=== PATIENT | male | born 1925 | race Caucasian/White ===

== ENCOUNTER 2016-12-15 11:53 | Inpatient (IN) | payer MEDICARE ==
[~2016-12-15] VITALS: Ht 172.7 cm; Wt 73.5 kg
[2016-12-15] VITALS (7 sets, daily range): BP systolic 142–179; BP diastolic 63–82; PULSE 53–65; RESP 18–20; O2SAT 96–99
[~2016-12-15 11:53] MED LIST: ACET325C PO; ASPI81TA3 PO; ATOR10TA66 PO; CARV12.52 PO; FURO-129 PO; HYDR-4003 PO; LOSA50TA3 PO; NITR0.4T SL; PRE20 PO; TAMS0.4C98 PO
[2016-12-15 12:07] LABS: BASOPHILS % (AUTO) 0.3 % (0-3); EOSINOPHILS % (AUTO) 2.7 % (0-5); Mean Corpuscular Hemoglobin 34.1 pg (27.0-35.0); Mean Corpuscular Volume 98.8 fL (81-100); NEUTROPHILS % (AUTO) 25.3 % (40-74); Platelet Count 103 bil/L (150-400)
--- NOTE | 2016-12-15 12:30 | DRSVH ---
PROCEDURE: X-RAY CHEST ONE VIEW, PORTABLE ([id number]) INDICATIONS: CHEST PAIN TECHNIQUE: One view of the chest was acquired. COMPARISON: [facility], CR, XR CHEST 1VW (PORTABLE), 05/11/2016, 16:32. FINDINGS: Surgical changes and devices: Pacemaker. Lungs and pleura: There is a mild appearance of increased pulmonary vascularity. Mediastinum: Mediastinal contours appear normal. Heart size is normal. Bones and chest wall: No suspicious bony lesions. Overlying soft tissues appear unremarkable. IMPRESSION: Mild increased pulmonary vascularity suggestive of edema. Dictated by: Sally Hatch M.D. on 12/15/2016 at 11:28 Approved by: Sally Hatch M.D. on 12/15/2016 at 11:29
[2016-12-15 12:41] LABS: TROPONIN T 0.014 ug/L (0.0-0.011)
--- NOTE | 2016-12-15 12:42 | DRSVH ---
PROCEDURE: CT BRAIN WITHOUT CONTRAST ([id number]) INDICATIONS: Trauma TECHNIQUE: Noncontrast 4.5 mm thick angled axial sections acquired from the foramen magnum to the vertex, with c oronal reformats. COMPARISON: None. FINDINGS: Image quality: Excellent. CSF spaces: Basal cisterns are patent. No extra-axial fluid collections. The ventricles are symmet flaco in size and shape. Brain: No intracranial bleeds or masses. There is cerebral volume loss for age, with resultant vent ricular and sulcal prominence. There are periventricular and deep white matter chronic small vessel ischemic changes. There is intracranial internal carotid artery atherosclerosis. Skull and face: Calvarium and visualized facial bones appear intact, without suspicious lesions. Sinuses: Visualized sinuses and mastoids are clear. IMPRESSION: 1. No acute intracranial process. 2. Moderate to severe atrophy and chronic microvascular ischemic changes. Dictated by: Sally Hatch M.D. on 12/15/2016 at 11:40 Approved by: Sally Hatch M.D. on 12/15/2016 at 11:41
--- NOTE | 2016-12-15 13:00 | ED.REPORT ---
HPI-General Illness Date of Service Dec 15, 2016 ED Provider: Krzysztof Morales MD The patient is an 89 year old male with history of coronary artery disease s/p stenting and AICD, CHF, hypertension, and GERD, who was brought to the emergency department from [facility] by EMS. While at home last night the patient became dizzy and fell to the ground. He hit his head but did not lose consciousness. He was able to crawl back into his bed and remained there until this morning when he was found by staff. He felt normal yesterday prior to the onset of dizziness and the fall. When staff found him in his room this morning he appeared pale, cool, and diaphoretic. He denies any pain at this time, specifically chest pain or headache. At this time he complains of feeling weak, nauseous, sweaty, and cold. Medics noticed ST elevation in V1-V3 and depression in V4-V6. En route to the ED medics noticed facial droop this is now resolved. He had similar symptoms a few years ago but does not remember what they found. He denies unilateral weakness, numbness, tingling, dysuria, hematuria, diarrhea , vomiting, bloody emesis, cough, runny nose, fever or chills. Code status: DNR, limited intervention Nursing Notes Stated Complaint: R/O STEMI Chief Complaint: General Complaint Nursing Notes Reviewed: Yes Allergies: Coded Allergies: naproxen (Verified Allergy, Severe, Upper Lip Swelling, 12/15/16) Aminoglycosides (Verified Allergy, Mild, 05/11/16) bacitracin (Verified Allergy, Mild, 12/15/16) neomycin (Verified Allergy, Mild, 12/15/16) polymyxin B (Verified Allergy, Mild, 12/15/16) Scheduled Allopurinol (Allopurinol) 100 Mg Tablet 100 MG PO DAILY Aspirin Chew (Aspirin Chew) 81 Mg Chew 81 MG PO DAILY Atorvastatin Calcium (Atorvastatin Calcium) 10 Mg Tablet 10 MG PO HS Carvedilol (Carvedilol) 12.5 Mg Tablet 12.5 MG PO BID Furosemide (Furosemide) 20 Mg Tab 20 MG PO DAILY Losartan Potassium (Losartan Potassium) 50 Mg Tablet 50 MG PO DAILY Tamsulosin (Flomax) 0.4 Mg Capsule 0.4 MG PO HS Scheduled PRN Acetaminophen (Acetaminophen) 325 Mg Capsule 650 MG PO Q4H PRN PRN For Pain Menthol (Absorbine Pain Relieving) 56.7 Gm Gel..gram. 1 APPLIC EXT TID PRN PRN For Pain Nitroglycerin SL (Nitrostat) 0.4 Mg Tab.subl 0.4 MG SL Q5MIN PRN PRN For Chest Pain General Time Seen by MD: 11:56 Chief Complaint Weakness Hx Obtained From: Patient, EMS Arrived By: Ambulance Sudden in Onset?: Yes Onset Occurred: Yesterday Symptom Duration: Since onset Severity: Current: No pain currently Severity: Maximum: No pain Recent Healthcare: No recent doctor visit, No recent hospitalization Similar Sx Previous: No TPA Administration/Criteria Stroke Thrombolytic Therapy : TPA Considered: Yes TPA Administered Intravenously: No, not indicated (NIH stroke scale: 0) NIH Stroke Scale Level of Consciousness: Alert and responsive (0) Ask Month & Age: Both questions right (0) Open/Close Eyes/Hand Store Consultant: Performs both tasks (0) Horizontal EO Movements: None (0) Visual Crystal: No visual loss (0) Facial Palsy: Normal symmetry (0) Right Arm Motor Drift (10s): No drift 10 sec (0) Left Arm Motor Drift (10s): No drift 10 sec (0) Right Leg Motor Drift (5s): No drift 5 sec (0) Left Leg Motor Drift (5s): No drift 5 sec (0) Limb Ataxia FNF/Heel-Arthur: No ataxia (0) Sensation (Arms/Legs/Face): No sensory loss (0) Language Aphasia: No aphasia, normal (0) Dysarthria: No dysarthria, normal (0) Extinction/Inattention: No exctinct/inattent (0) NIHSS Score: 0 Time NIHSS Performed: 12:10 Date NIHSS Performed: Dec 15, 2016 Past Medical History Past Medical History Notes: PCP Dr. 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 current plus VR model HF4885-52E, serial #[id number], Durata lead, model 7120Q/58CM, serial #[id number]) Hip replacement Colonoscopy Cardiac stenting Family History non-contributory Smoking History Former Smoker Social History Alcohol Use: Denies alcohol use Drug Use: Denies drug use Other Social History: [place], Local resident Ambulatory Status Independent Review of Systems +facial droop, resolved Full Review of Systems Constitutional: Reports: Weakness - generalized, Denies: Chills, Fever Ears / Nose / Throat: Denies: Nasal congestion Respiratory: Denies: Non-productive cough, Shortness of breath Cardiovascular: Denies: Chest pain GI: Reports: Nausea, Denies: Diarrhea, Hematemesis, Hematochezia, Vomiting Male: Denies Dysuria, Denies Hematuria Skin: Reports Diaphoresis Neurologic: Reports: Dizziness, Lightheaded, Denies: Focal weakness Complete sys rev & neg: except as marked. Physical Exam Vital Signs Vital Signs Date Time Temp Pulse Resp B/P Pulse Ox O2 Delivery O2 Flow Rate FiO2 12/15/16 14:33 62 20 158/63 96 Nasal Cannula 2 12/15/16 12:07 36.6 53 20 179/82 97 Nasal Cannula 2 Initial VS: Reviewed Head / Eyes: Atraumatic, Normocephalic, PERRL ENT: Mucous membranes moist, Conjunctiva normal, No scleral icterus Neck: Supple, Non-tender, Full range of motion Respiratory: Breath sounds normal, Clear to auscultation, No respiratory distress Cardiovascular: Regular rate & rhythm, Heart sounds normal, Intact distal pulses Abdomen / GI: Soft, Non-tender, No guarding, No rebound, No distention Lymphatic: No lymphadenopathy Extremities: Vascular intact, Neuro intact, No swelling, No tenderness Skin: Warm, Dry, No cyanosis Neurologic: Alert, Oriented, Nonfocal Psychiatric: Mood/affect normal, Behavior normal, Normal thought content General/Constitutional: Awake, Alert Appearance / Presentation: Positive: Pale Globally weak Interpretation & Diagnostics Lab Results Interpretation Result Diagram: 12/15/16 1200 12/15/16 1200 Test 12/15/16 12:00 12/15/16 12:59 12/15/16 14:19 White Blood Count 3.7th/mm3 (3.8-10.1) Red Blood Count 4.14mil/mm3 (4.40-5.80) Hemoglobin 14.1g/dL (13.8-17.2) Hematocrit 40.9% (41.0-50.0) Mean Corpuscular Volume 98.8fL (81-100) Mean Corpuscular Hemoglobin 34.1pg (27.0-35.0) Mean Corpuscular Hemoglobin Concent 34.5% (32.0-37.0) Red Cell Distribution Width 13.0% (12.3-15.4) Platelet Count 103bil/L (150-400) Neutrophils (%) (Auto) 25.3% (40-74) Lymphocytes (%) (Auto) 36.4% (14-46) Monocytes (%) (Auto) 35.0% (4-12) Eosinophils (%) (Auto) 2.7% (0-5) Basophils (%) (Auto) 0.3% (0-3) Hold Blue Top Tube Received (Received) Sodium Level 139mEq/L (134-144) Potassium Level 3.9mEq/L (3.5-5.2) Chloride Level 100mEq/L (97-108) Carbon Dioxide Level 23mmol/L (18-29) Blood Urea Nitrogen 22mg/dL (8-27) Creatinine 1.27mg/dL (0.76-1.27) Estimat Glomerular Filtration Rate 57mL/min (>59) Glucose Level 137mg/dL (60-99) Calcium Level 10.0mg/dL (8.5-10.1) Magnesium Level 2.0mg/dL (1.6-2.6) Total Bilirubin 0.8mg/dL (0.0-1.2) Aspartate Amino Transf (AST/SGOT) 24U/L (0-50) Alanine Aminotransferase (ALT/SGPT) 20U/L (0-44) Alkaline Phosphatase 78U/L (25-160) Troponin T 0.014ug/L (0.0-0.011) Total Protein 7.2g/dL (6.4-8.4) Albumin 4.8g/dL (3.4-5.0) Hold Red Top Tube Received (Received) Prothrombin Time 11.8sec (8.1-12.5) Prothromb Time International Ratio 1.10ratio Activated Partial Thromboplast Time 25.9sec (22.8-33.0) Lactic Acid Level 1.2mmol/L (0.4-2.0) Urine Color Yellow (YELLOW) Urine Appearance Hazy (CLEAR,HAZY) Urine pH 7.5 (5.0-8.0) Urine Specific [place] 1.015 (1.003-1.035) Urine Protein Negativemg/dL (NEG,TRACE) Urine Glucose (UA) Negativemg/dL (NEGATIVE) Urine Ketones Negativemg/dL (NEGATIVE) Urine Occult Blood Negative (NEGATIVE) Urine Nitrite Negative (NEGATIVE) Urine Bilirubin Negative (NEGATIVE) Urine Urobilinogen Normalmg/dL (NORMAL) Urine Leukocyte Esterase Small (NEGATIVE) Urine RBC 0-2/hpf (0-2) Urine WBC 6-10/hpf (0-5) Urine Epithelial Cells Occasional/hpf (NONE-MOD) Urine Crystals None seen (NONE SEEN) Urine Bacteria Few/hpf (NONE-FEW) Urine Hyaline Casts None/lpf (NONE) Urine Granular Casts None seen (NONE SEEN) Urine Waxy Casts None seen (NONE SEEN) Urine Red Blood Cell Casts None seen (NONE SEEN) Urine White Blood Cell Casts None seen (NONE SEEN) Urine Mucus None seen (None Seen) Urine Trichomonas None seen (NONE SEEN) Urine Yeast None (NONE SEEN) Urinalysis Comment None Urine Culture Reflexed Indicated Lab Results Interpretation: CBC mild nonspecific leukopenia, mild nonspecific thrombocytopenia CMP normal Troponin elevated Urine marginally abnormal, nonspecific-culture pending I am not finding indication for treatment and a box at this time ECG Interpretation ECG Interpretation: Sinus rhythm with a rate of 55 LBBB First degree heart block Unchanged from prior EKG taken on 05/11/2016 Time: 11:59 Interpreted by: ED physician X-Ray Chest Interpretation Chest Xray Interpretation: IMPRESSION: Mild increased pulmonary vascularity suggestive of edema. Dictated by: Sally Hatch M.D. on 12/15/2016 at 11:28 Interpretation / Wet Read by: Interpret - Radiologist CT Head Interpretation IMPRESSION: 1. No acute intracranial process. 2. Moderate to severe atrophy and chronic microvascular ischemic changes. Dictated by: Sally Hatch M.D. on 12/15/2016 at 11:40 Study: Head CT no contrast Interpretation / Wet Read by: Interpret - Radiologist Re-Eval/Medical Decision Med Decision/Clinical Course This is an 89-year-old male with an extensive cardiac history and a pacemaker( [employer]) [employer] with sudden onset of diaphoresis and weakness the point he could not stand. He lives by himself. Medics were ultimately called. He denied chest discomfort or shortness of breath. He denies since the fevers chills, denies any infectious symptoms, he appears quite pale and globally weak , but denies any history of GI blood loss. The patient did fall and hit his head, and a head CT was negative. He denies loss of consciousness today. There was initial concern by EMS of the possibility of an ST segment elevation RI, but review the EKG demonstrate a chronic left bundle branch block. She has normal vitals, but appears profoundly and globally weak initially-and mildly resolving diaphoresis. He did improve over time without any major intervention. At this point a search for causes underway, fiona Issa is a chronic Branch block, initial troponin is elevated. Blood work is otherwise normal. Urine is some marginal white cell count, but it is hard to blame on such a presentation, contaminant seems more likely still. The patient while in the hospital admitted to having a syncopal episode yesterday as well. In the setting observation admission is warranted. The patient's limited intervention as does not wish resuscitation or aggressive measures. We give he lives by himself, was too weak to stand when he got here, had a syncopal episode yesterday an extensive cardiac history with elevated troponin today, admission is warranted. Patient received aspirin and Nitropaste. Patient is admitted in stable condition. I have talked with the [employer] sales representative livestock and they will come perform a pacemaker interrogation tomorrow given the syncope reported yesterday. Patient has had no dysrhythmia events in the department. Source of Hx: Old records, EMS Time of Eval: 14:00 Re-Evaluation/Progress Note: Discussed results, diagnosis, and plan for admission. All questions were addressed. Time of Eval: 14:53 Re-Evaluation/Progress Note: Rechecked the patient. He is feeling much better at this time. He reports a syncopal episode yesterday. Will have his pacemaker interrogated. Consultation #1: Referral / Consult Name: Karson Cervantes MD Consulted With: Hospitalist Call Returned at: 14:29 Joinery Patternmaker: Will see patient, Agrees with eval, Agrees with plan, Accepts admit Consultation #2: Call Returned at: 15:02 Note: [employer] rep will be here tomorrow to interrogate the patient's pacemaker. Differential Diagnosis: Negative: Abdominal pain, Allergies, Neutropenia, Pneumonia, Seizure disorder Counseled Regarding: Diagnosis, Lab results, Need for admission Discharge & Departure Primary Impression: Generalized weakness Additional Impressions: LBBB (left bundle branch block) Elevated troponin Syncope and collapse Disposition: ADMITTED TO HOSPITAL Discharge Condition All VS Reviewed: Yes Condition: Stable Referrals: NOPCP (PCP) Scribe Attestation Portions of this note were transcribed by Sheila Thornton. I, Dr. Morales personally performed the history, physical exam and medical decision-making; I reviewed and confirmed the accuracy of the information in the transcribed note. Signed by: Venancio Peraza, 12/15/2016 at 1455. Krzysztof Morales MD Dec 15, 2016 13:00 Sheila Thornton Dec 15, 2016 13:04
[2016-12-15 13:22] LABS: INR 1.1 ratio
[2016-12-15] MEDS ORDERED: Nitroglycerin 2% 1 Gm Ointment TOPICAL SCH (14:05)
[2016-12-15] MEDS ORDERED: ZYL100 PO (14:42)
[2016-12-15] MEDS ORDERED: FUR20 PO (14:44)
[2016-12-15] MEDS ORDERED: LOSA50TA37 PO (14:44)
[2016-12-15] MEDS ORDERED: MENT56.7 EXT (14:45)
--- NOTE | 2016-12-15 14:55 | PCM.HPMED ---
Subjective Date of Service Dec 15, 2016 Primary Provider: Admitting Physician: Karson Cervantes MD Primary Care Physician: Nopcp Attending Physician: Karson Cervantes MD Chief Complaint: Generalized weakness History of Present Illness: The patient is an 89 year old male with history of coronary artery disease s/p scenting and AICD, CHF, hypertension, and GERD, who was brought to the emergency department from [facility] by EMS. While at home last night the patient became dizzy and fell to the ground. He hit his head but did not lose consciousness. He was able to crawl back into his bed and remained there until this morning when he was found by staff. He felt normal yesterday prior to the onset of dizziness and the fall. When staff found him in his room this morning he appeared pale, cool, and diaphoretic. He denies any pain at this time, specifically chest pain or headache. At this time he complains of feeling weak, nauseous, sweaty, and cold. Medics noticed ST elevation in V1-V3 and depression in V4-V6. En route to the ED medics noticed facial droop this is now resolved. He had similar symptoms a few years ago but does not remember what they found. He denies unilateral weakness, numbness, tingling, dysuria, hematuria, diarrhea , vomiting, bloody emesis, cough, runny nose, fever or chills. Most information were retrieved from patient medical record and has per my conversation with the ER physician. Patient is a poor historian , he was reading the news paper during physical and interview and all he wants to talk about is "I want to go home" Review of Systems: Comprehensive review of system x 12 points is negative except for generalized weakness as described above in HPI Allergies Coded Allergies: naproxen (Verified Allergy, Severe, Upper Lip Swelling, 12/15/16) Aminoglycosides (Verified Allergy, Mild, 05/11/16) bacitracin (Verified Allergy, Mild, 12/15/16) neomycin (Verified Allergy, Mild, 12/15/16) polymyxin B (Verified Allergy, Mild, 12/15/16) Home Medications Scheduled Acetaminophen (Acetaminophen) 325 Mg Capsule 325 MG PO Q4-6H Aspirin Chew (Aspirin Chew) 81 Mg Chew 81 MG PO DAILY Atorvastatin Calcium (Atorvastatin Calcium) 10 Mg Tablet 10 MG PO HS Carvedilol (Carvedilol) 12.5 Mg Tablet 12.5 MG PO BID Furosemide (Lasix) 20 Mg Tablet 20 MG PO DAILY Losartan Potassium (Cozaar) 50 Mg Tablet 100 MG PO DAILY Prednisone (PredniSONE) 20 Mg Tablet 20 MG PO DAILY Tamsulosin (Flomax) 0.4 Mg Capsule 0.4 MG PO HS Scheduled PRN Hydrocodone-Acetaminophen 5-325 mg (Hydrocodone-Acetaminophen 5-325 mg) 1 Each Tablet 1 TABLET PO Q8H PRN PRN For Pain Nitroglycerin SL (Nitrostat) 0.4 Mg Tab.subl 0.4 MG SL Q5MIN PRN PRN For Chest Pain PMH 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 CAD Gout Heart attack in 1995 Colon polyps Diverticulosis Peptic ulcer disease Reports: GERD, Hypertension Surgical History TURP, AICD, Hip replacement, Colonoscopy, Cardiac stenting Family History Reviewed and is non contributory to the present illness Social History Hx Alcohol Use: No Hx Substance Use: No Hx Tobacco Use: No Smoking Status: Former Smoker Living Arrangement: Alone Exam Vital Signs Vital Sign - Last Date Time Temp Pulse Resp B/P Pulse Ox O2 Delivery O2 Flow Rate FiO2 12/15/16 14:33 62 20 158/63 96 Nasal Cannula 2 12/15/16 12:07 36.6 Exam General/Constitutional: Morbidly obese male , and stretcher comfortably, no acute distress HEENT: Normocephalic, atraumatic, sclera anicteric Mouth: Moist oropharyngeal mucosa, no oral thrush. Neck: Atraumatic, Supple, no JVD , trachea is midline No swelling, Non-tender, No carotid bruit Heart: S1, S2, Regular rhythm, No murmurs, No rubs, no gallop Chest:Atraumatic, no chest wall deformity, no tenderness Abdomen / GI: Obese , Soft, Non-tender, non distended, no palpable masses. Bowel sounds normal Lymphatic: No lymphadenopathy, no splenomegaly Extremities: No cyanosis, no edema, no calf tenderness Skin: Warm, Dry, No cyanosis, no rash, and also Psychiatric: Mood/affect normal, Behavior normal, Normal thought content Neurologic: Oriented X3, grossly non focal Lab and Diagnostics Result Diagram: 12/15/16 1200 12/15/16 1200 X-Rays, CTs and MRIs Head CT scan reviewed : 1. No acute intracranial process. 2. Moderate to severe atrophy and chronic microvascular ischemic changes. Chest x-ray reviewed and shows : Pulmonary edema Assessment & Plan 1. Generalized weakeners 2. Pulmonary edema 3. 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 Generalized weakeners may be angina equivalent . Troponin borderline . Chest X-ray shows mild pulmonary edema Follow trend of troponin.. EKG shows old left BBB Patient is on aspirin, beta ramona, statin from his medications. Obtain echocardiogram . BNP. Repeat chest X-ray in am No clinical evidence of ongoing infection., No fever, no leukocytes. Home medication reviewed and reconciled . Start IV lasix SCD for DVT prophylaxis . PT evaluation VTE Prophylaxis: SCDs Resuscitation Status: DNR/DNI:Do Not Resuscitate/Intubate Time spent 75 minutes Karson Cervantes MD Dec 15, 2016 14:55
[2016-12-15 15:20] LABS: APPEARANCE,URINE HAZY (CLEAR,HAZY); COLOR,URINE YELLOW (YELLOW); OCCULT BLOOD,URINE NEGATIVE (NEGATIVE); PH,URINE 7.5 (5.0-8.0); UROBILINOGEN,URINE NORMAL (NORMAL)
[2016-12-15 16:49] LABS: TROPONIN T 0.015 ug/L (0.0-0.011)
[2016-12-15 17:00] LABS: Magnesium 1.9 mg/dL (1.6-2.6)
[2016-12-15] MEDS: Furosemide 10 mg/mL 4 mL Inj IVPUSH SCH (17:52)
--- NOTE | 2016-12-15 17:58 | DRSVH ---
[facility] [address] [place] [address] Echocardiogram Report Name: KALINA LEON Frederick e: 12/15/2016 Height: 69 in Hospital Exam Location: [facility] Weight: 155 lb Gender: Male BSA: 1.9 m2 : 1925 Age: 89 yrs BP: 142/63 mmHg Reason For Study: HEART FAILURE Ordering Physician: HOSPITALIST [facility] Performed By: Jamie Roy Referring Physician: ARA AGUAYO Interpretation Summary The left ventricle is mildly dilated. Left ventricular systolic function is moderate to severely reduced. The ejection fraction is estimated to be 30- 35%. Compared to the prior exam, left ventricular function is slightly improved. There is akinesis of the basal 2/3 of the inferior and inferolateral man with severe global hypokinesis of the rest of the ventricle as well as marked dyssynchronous contraction due to RV apical pacing. Compared to the prior exam, the left ventricular wall motion has not changed. The right ventricle is normal in size and function. There is a pacemaker lead in the right ventricle. Right ventricular systolic pressure is estimated to be 34 mmHg plus the clinically estimated CVP which cannot be estimated on this exam. The left atrium is severely dilated. The right atrium is mildly dilated. There is moderate mitral regurgitation. There is mild aortic regurgitation. There is no other significant valvular heart disease. The aortic root is normal size. Procedure: A two-dimensional transthoracic echocardiogram with color flow and Doppler was performed. Apical images are good; parasternal images are difficult. Comparison is made with the echocardiogram of 03/20/16. The heart rate ranged between 55-70 bpm during the study. The patient has a paced rhythm. Left Ventricle: The left ventricle is mildly dilated. Left ventricular wall thickness is mildly increased. Left ventricular systolic function is moderate to severely reduced. The ejection fraction is estimated to be 30-35%. Compared to the prior exam, left ventricular function is slightly improved. There is akinesis of the basal 2/3 of the inferior and inferolateral man with severe global hypokinesis of the rest of the ventricle as well as marked dyssynchronous contraction due to RV apical pacing. Compared to the prior exam, the left ventricular wall motion has not changed. Diastolic function could not be accurately assessed due to paced rhythm. Right Ventricle: The right ventricle is normal in size and function. There is a pacemaker lead in the right ventricle. Atria: The left atrium is severely dilated. The right atrium is mildly dilated. The interatrial septum is intact with no evidence for an atrial septal defect. Mitral Valve: The mitral valve leaflets appear borderline thickened, but open well. There is moderate mitral regurgitation. Aortic Valve: The aortic valve is grossly normal. There is no hemodynamically significant valvular aortic stenosis. There is mild aortic regurgitation. Tricuspid Valve: The tricuspid valve is not well visualized, but is grossly normal. There is mild tricuspid regurgitation. Right ventricular systolic pressure is estimated to be 34 mmHg plus the clinically estimated CVP which cannot be estimated on this exam. Pulmonic Valve: The pulmonic valve is not well visualized. There is no other significant valvular heart disease. Great Vessels: The aortic root is normal size. The ascending aorta could not be visualized. The pulmonary artery is not well visualized, but is probably normal size. The inferior vena cava was not well visualized. Pericardium/ Pleura There is no pericardial effusion. There is no pleural effusion. MMode/2D Measurements & Calculations RA long axis: 4.8 cmRVD1 (basal): 3.6 cmTAPSE: 2.2 cm LA A2 area: 22.1 cm LA A4 area: 32.2 cm RA area: 19.6 cm LA length (vol): 6.2 cm RA vol: 67.8 ml LA vol: 96.9 ml RA : 36.6 ml/m2 LA vol index: 52.3 ml/m2 Doppler Measurements & Calculations Ao V2 max MV E max jeff Med Peak E' Jeff TR max jeff : 146.0 cm/sec : 126.8 cm/sec : 289.7 cm/sec Ao max PG E/E' med: 19.1 TR max P.6 mmHg : 8.5 mmHg MR ERO: 0.25 cm2 Lat Peak E' Jeff Ao mean PG E/E' lat: 12.2 LVOT Max Jeff E/e' average: 15.6 : 96.5 cm/sec sev ratio MV V2 mean Ao V2 mean LV V1 max PG MR flow rate : 66.5 cm/sec : 84.8 cm/sec MV mean PG Ao V2 VTI: 29.7 cm LV V1 VTI: 18.3 cm : 130.8 cm3/sec MR PISA radius MV V2 VTI: 23.1 cm : 0.75 cm Reading Physician:YUE
[2016-12-16] VITALS (7 sets, daily range): BP systolic 120–166; BP diastolic 65–89; PULSE 57–70; RESP 16–20; O2SAT 96–97
[2016-12-16 05:06] LABS: BASOPHILS % (AUTO) 0.4 % (0-3); EOSINOPHILS % (AUTO) 2.5 % (0-5); MONOCYTES % (AUTO) 33.5 % (4-12); Mean Corpuscular Hemoglobin 34.3 pg (27.0-35.0); NEUTROPHILS % (AUTO) 28.7 % (40-74); Platelet Count 82 bil/L (150-400)
[2016-12-16 05:32] LABS: TROPONIN T 0.024 ug/L (0.0-0.011)
[2016-12-16] MEDS: Furosemide 10 mg/mL 4 mL Inj IVPUSH SCH (09:34)
--- NOTE | 2016-12-16 10:38 | DRSVH ---
PROCEDURE: X-RAY CHEST ONE VIEW, PORTABLE ([id number]) INDICATIONS: CONGESTIVE HEART FAILURE TECHNIQUE: One view of the chest was acquired. COMPARISON: [facility], CR, XR CHEST 1VW (PORTABLE), 12/15/2016, 12:08. FINDINGS: Surgical changes and devices: Stable position left chest AICD. Lungs and pleura: No pleural effusions or pneumothorax. Lungs are clear. Mild edema. Mediastinum: Mediastinal contours appear normal. Heart size is normal. Bones and chest wall: No suspicious bony lesions. Overlying soft tissues appear unremarkable. IMPRESSION: Minimal edema unchanged. Dictated by: Aaron Winchester RRA Interpreted: Lita Hall MD on 12/16/2016 at 10:37 Transcribed by: NIGHAT on 12/16/2016 at 10:38 Approved by: Lita Hall MD, PhD on 12/16/2016 at 17:08
--- NOTE | 2016-12-16 14:17 | PCM.PNMED ---
Subjective Date of Service Dec 16, 2016 Subjective HPI PER admitting physician: The patient is an 89 year old male with history of coronary artery disease s/p scenting and AICD, CHF, hypertension, and GERD, who was brought to the emergency department from [facility] by EMS. While at home last night the patient became dizzy and fell to the ground. He hit his head but did not lose consciousness. He was able to crawl back into his bed and remained there until this morning when he was found by staff. He felt normal yesterday prior to the onset of dizziness and the fall. When staff found him in his room this morning he appeared pale, cool, and diaphoretic. He denies any pain at this time, specifically chest pain or headache. At this time he complains of feeling weak, nauseous, sweaty, and cold. Medics noticed ST elevation in V1-V3 and depression in V4-V6. En route to the ED medics noticed facial droop this is now resolved. He had similar symptoms a few years ago but does not remember what they found. He denies unilateral weakness, numbness, tingling, dysuria, hematuria, diarrhea , vomiting, bloody emesis, cough, runny nose, fever or chills. Most information were retrieved from patient medical record and has per my conversation with the ER physician. Patient is a poor historian , he was reading the news paper during physical and interview and all he wants to talk about is "I want to go home" S: pts daughter: Amy at [phone], patient seen at bedside, no chest pain or shortness breath or fever. Hoping to go home tomorrow but minimal to staying this evening - denies acute complaints. Exam Vital Signs Vital Sign - Last Date Time Temp Pulse Resp B/P Pulse Ox O2 Delivery O2 Flow Rate FiO2 12/16/16 05:30 36.6 57 20 156/72 97 Room Air 12/15/16 15:22 2 Intake and Output 12/15/16 12/15/16 12/16/16 Cumulative From/Thru 15:00 23:00 07:00 12/15/16 12:07 - 12/16/16 06:08 Intake Total 0 ml 200 ml 200 ml Output Total 800 ml 1100 ml 1900 ml Balance -800 ml -900 ml -1700 ml Intake Oral 0 ml 200 ml 200 ml Output Urine Total 800 ml 1100 ml 1900 ml # Voids 1 1 # Bowel Movements 0 0 0 Exam General/Constitutional: Morbidly obese male , and stretcher comfortably, no acute distress HEENT: Normocephalic, atraumatic, sclera anicteric Mouth: Moist oropharyngeal mucosa, no oral thrush. Neck: Atraumatic, Supple, no JVD , trachea is midline No swelling, Non-tender, No carotid bruit Heart: S1, S2, Regular rhythm, No murmurs, No rubs, no gallop Chest:Atraumatic, no chest wall deformity, no tenderness Abdomen / GI: Obese , Soft, Non-tender, non distended, no palpable masses. Bowel sounds normal Lymphatic: No lymphadenopathy, no splenomegaly Extremities: No cyanosis, no edema, no calf tenderness Skin: Warm, Dry, No cyanosis, no rash, and also Psychiatric: Mood/affect normal, Behavior normal, Normal thought content Neurologic: Oriented X3, grossly non focal IVs and Medications Medications Reviewed: Medications were reviewed in detail Lab and Diagnostics Result Diagram: 12/16/1645712/16/16457 X-Rays, CTs and MRIs Head CT scan reviewed : 1. No acute intracranial process. 2. Moderate to severe atrophy and chronic microvascular ischemic changes. Chest x-ray reviewed and shows : Pulmonary edema Cardiac Echo Impressions Interpretation Summary The left ventricle is mildly dilated. Left ventricular systolic function is moderate to severely reduced. The ejection fraction is estimated to be 30- 35%. Compared to the prior exam, left ventricular function is slightly improved. There is akinesis of the basal 2/3 of the inferior and inferolateral man with severe global hypokinesis of the rest of the ventricle as well as marked dyssynchronous contraction due to RV apical pacing. Compared to the prior exam, the left ventricular wall motion has not changed. The right ventricle is normal in size and function. There is a pacemaker lead in the right ventricle. Right ventricular systolic pressure is estimated to be 34 mmHg plus the clinically estimated CVP which cannot be estimated on this exam. The left atrium is severely dilated. The right atrium is mildly dilated. There is moderate mitral regurgitation. There is mild aortic regurgitation. There is no other significant valvular heart disease. The aortic root is normal size. Assessment & Plan 1. Generalized weakeners 2. Pulmonary edema secondary to acute systolic CHF exacerbation with an EF of 30-35% similar to previous echo, likely worsened by moderate mitral regurgitation seen on echo 3. 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 Generalized weakeners may be angina equivalent . Troponin borderline . 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 Echo reviewed as above. BNP. Repeat chest X-ray in am No clinical evidence of ongoing infection., No fever, no leukocytes. Home medication reviewed and reconciled . cont IV lasix SCD for DVT prophylaxis . PT evaluation Pain Evaluation: Adequate Pain Control GI Prophylaxis: Not indicated VTE Prophylaxis: SCDs Resuscitation Status: DNR/DNI:Do Not Resuscitate/Intubate Time spent 45 minutes spent with evaluation and management Attending Statement Disposition: Likely able to discharge tomorrow stable clinical condition with PT recommended home health PT at [facility] Karson Knowles DO Dec 16, 2016 07:45
[2016-12-17 00:52] VITALS: BP 145/78; PULSE 79; RESP 16; O2SAT 96
[2016-12-17 03:53] VITALS: BP 122/64; PULSE 66; RESP 16; O2SAT 95
[2016-12-17 06:06] VITALS: PULSE 70
[2016-12-17] MEDS ORDERED: Furosemide 10 mg/mL 4 mL Inj IVPUSH SCH (08:30)
[2016-12-17 08:47] LABS: BASOPHILS % (AUTO) 0 % (0-3); EOSINOPHILS % (AUTO) 2.8 % (0-5); MONOCYTES % (AUTO) 32.4 % (4-12); Mean Corpuscular Hemoglobin 34.5 pg (27.0-35.0); Mean Corpuscular Volume 98.5 fL (81-100); NEUTROPHILS % (AUTO) 31.2 % (40-74); Platelet Count 72 bil/L (150-400)
[2016-12-17 09:14] VITALS: PULSE 62
[2016-12-17 09:55] VITALS: BP 142/69; PULSE 66; RESP 18; O2SAT 96
--- NOTE | 2016-12-17 10:17 | PCM.DIMED ---
Discharge Instructions Date of Service Dec 17, 2016 Dates of Hospitalization Dec 15, 2016 at 14:44 Discharge Diagnosis Discharge Diagnosis Acute systolic CHF exacerbation secondary to ischemic and non ischemic causes CAD, post pacemaker, [place] in 1995 Gout Colon polyps Diverticulosis Peptic ulcer disease GERD, Hypertension Thrombocytopenia Test Results Negative head CT Chest x-ray: FINDINGS: Surgical changes and devices: Stable position left chest AICD. Lungs and pleura: No pleural effusions or pneumothorax. Lungs are clear. Mild edema. Mediastinum: Mediastinal contours appear normal. Heart size is normal. Bones and chest wall: No suspicious bony lesions. Overlying soft tissues appear unremarkable. IMPRESSION: Minimal edema unchanged. Diet Heart Healthy Activity No restrictions (optimize fall precautions as patient is a fall risk, patient utilizing electric wheelchair now) Call your provider Fever or Chills, Shortness of breath, Bleeding, Chest pain Patient Instructions Mr. Turner, you were treated for increased fluid in your Lungs, this was treated with IV Lasix. Your heart had a little strain during this episode but it does not look like he had any evidence of an acute heart attack. Please keep a regular primary care follow-up within 2 weeks. I have not changed your home medications Follow-up plan Return to [facility] with continued walker and electric wheelchair use Follow-up Provider: Jess Darling PA-C Follow-up with PCP in: 2 weeks Karson Knowles DO Dec 17, 2016 10:17
--- NOTE | 2016-12-17 10:28 | PCM.DC.MED ---
Discharge Summary Date of Service Dec 17, 2016 Dates of Hospitalization Date of Hospital Admission Dec 15, 2016 at 14:44 Date of Discharge: Dec 17, 2016 Providers: Admitting Physician: Karson Cervantes MD Primary Care Physician: Nopzach Attending Physician: Karson Cervantes MD Diagnosis at Time of Discharge Diagnosis at Time of Discharge Acute systolic CHF exacerbation secondary to ischemic and non ischemic causes CAD, post pacemaker, [place] in 1995 Gout Colon polyps Diverticulosis Peptic ulcer disease GERD, Hypertension Thrombocytopenia Procedures XRay, CTs & MRIs Head CT scan reviewed : 1. No acute intracranial process. 2. Moderate to severe atrophy and chronic microvascular ischemic changes. Chest x-ray reviewed and shows : Pulmonary edema ECG 12 Lead Left bundle-branch block, no change from previous Cardiac Echo Impression Echo 12/15 Interpretation Summary The left ventricle is mildly dilated. Left ventricular systolic function is moderate to severely reduced. The ejection fraction is estimated to be 30- 35%. Compared to the prior exam, left ventricular function is slightly improved. There is akinesis of the basal 2/3 of the inferior and inferolateral man with severe global hypokinesis of the rest of the ventricle as well as marked dyssynchronous contraction due to RV apical pacing. Compared to the prior exam, the left ventricular wall motion has not changed. The right ventricle is normal in size and function. There is a pacemaker lead in the right ventricle. Right ventricular systolic pressure is estimated to be 34 mmHg plus the clinically estimated CVP which cannot be estimated on this exam. The left atrium is severely dilated. The right atrium is mildly dilated. There is moderate mitral regurgitation. There is mild aortic regurgitation. There is no other significant valvular heart disease. The aortic root is normal size. Brief History History of present illness as per admitting physician: The patient is an 89 year old male with history of coronary artery disease s/p scenting and AICD, CHF, hypertension, and GERD, who was brought to the emergency department from [facility] by EMS. While at home last night the patient became dizzy and fell to the ground. He hit his head but did not lose consciousness. He was able to crawl back into his bed and remained there until this morning when he was found by staff. He felt normal yesterday prior to the onset of dizziness and the fall. When staff found him in his room this morning he appeared pale, cool, and diaphoretic. He denies any pain at this time, specifically chest pain or headache. At this time he complains of feeling weak, nauseous, sweaty, and cold. Medics noticed ST elevation in V1-V3 and depression in V4-V6. En route to the ED medics noticed facial droop this is now resolved. He had similar symptoms a few years ago but does not remember what they found. He denies unilateral weakness, numbness, tingling, dysuria, hematuria, diarrhea , vomiting, bloody emesis, cough, runny nose, fever or chills. Most information were retrieved from patient medical record and has per my conversation with the ER physician. Patient is a poor historian , he was reading the news paper during physical and interview and all he wants to talk about is "I want to go home Hospital Course 1. Generalized weakeners likely secondary to acute systolic CHF exacerbation 2. Pulmonary edema secondary to acute systolic CHF exacerbation with an EF of 30-35% similar to previous echo, likely worsened by moderate mitral regurgitation seen on echo, diuresis during hospitalization and will continue with home regimen of Lasix 20 mg with rectum condition to follow up with Dr. Salazar of cardiology in one to weeks. Discussed with Mallory patient's daughter. Patient was monitored on telemetry and troponin remain mildly elevated likely secondary to stress as noted below. There is no evidence of infection at the time of discharge, patient remained hemodynamically stable with adequate oxygenation. We started losartan at the time of discharge which is patient's home regimen 3. Elevated Troponin - downtrending now, likely secondary to stress from both Chronic medical problems 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 CAD, post pacemaker Gout Heart attack in 1995 Colon polyps Diverticulosis Peptic ulcer disease Reports: GERD, Hypertension Thrombocytopenia Exam Vital Signs (Last) Date Time Temp Pulse Resp B/P Pulse Ox O2 Delivery O2 Flow Rate FiO2 12/17/16 09:55 36.4 66 18 142/69 96 Room Air 12/15/16 15:22 2 Exam General/Constitutional: No acute distress, and no 3 resting comfortably HEENT: Normocephalic, atraumatic, sclera anicteric Mouth: Moist oropharyngeal mucosa, no oral thrush. Neck: Atraumatic, Supple, no JVD , trachea is midline No swelling, Non-tender, No carotid bruit Heart: S1, S2, Regular rhythm, No murmurs, No rubs, no gallop Chest:Atraumatic, no chest wall deformity, no tenderness Abdomen / GI: Obese , Soft, Non-tender, non distended, no palpable masses. Bowel sounds normal Lymphatic: No lymphadenopathy, no splenomegaly Extremities: No cyanosis, no edema, no calf tenderness Skin: Warm, Dry, No cyanosis, no rash, and also Psychiatric: Mood/affect normal, Behavior normal, Normal thought content Neurologic: Oriented X3, grossly non focal Test 12/15/16 12:00 12/15/16 12:59 12/15/16 14:19 12/15/16 15:44 Hold Blue Top Tube Received (Received) Hold Red Top Tube Received (Received) Prothrombin Time 11.8sec (8.1-12.5) Prothromb Time International Ratio 1.10ratio Activated Partial Thromboplast Time 25.9sec (22.8-33.0) Lactic Acid Level 1.2mmol/L (0.4-2.0) Urine Color Yellow (YELLOW) Urine Appearance Hazy (CLEAR,HAZY) Urine pH 7.5 (5.0-8.0) Urine Specific [place] 1.015 (1.003-1.035) Urine Protein Negativemg/dL (NEG,TRACE) Urine Glucose (UA) Negativemg/dL (NEGATIVE) Urine Ketones Negativemg/dL (NEGATIVE) Urine Occult Blood Negative (NEGATIVE) Urine Nitrite Negative (NEGATIVE) Urine Bilirubin Negative (NEGATIVE) Urine Urobilinogen Normalmg/dL (NORMAL) Urine Leukocyte Esterase Small (NEGATIVE) Urine RBC 0-2/hpf (0-2) Urine WBC 6-10/hpf (0-5) Urine Epithelial Cells Occasional/hpf (NONE-MOD) Urine Crystals None seen (NONE SEEN) Urine Bacteria Few/hpf (NONE-FEW) Urine Hyaline Casts None/lpf (NONE) Urine Granular Casts None seen (NONE SEEN) Urine Waxy Casts None seen (NONE SEEN) Urine Red Blood Cell Casts None seen (NONE SEEN) Urine White Blood Cell Casts None seen (NONE SEEN) Urine Mucus None seen (None Seen) Urine Trichomonas None seen (NONE SEEN) Urine Yeast None (NONE SEEN) Urinalysis Comment None Urine Culture Reflexed Indicated Hold Urine Received (Received) Test 12/15/16 16:15 12/16/16 04:58 12/16/16 20:35 12/17/16 08:32 Magnesium Level 1.9mg/dL (1.6-2.6) Total Bilirubin 0.8mg/dL (0.0-1.2) Aspartate Amino Transf (AST/SGOT) 19U/L (0-50) Alanine Aminotransferase (ALT/SGPT) 16U/L (0-44) Alkaline Phosphatase 65U/L (25-160) Pro-B-Type Natriuretic Peptide 6841pg/mL (0-486) Total Protein 6.5g/dL (6.4-8.4) Albumin 4.1g/dL (3.4-5.0) Procalcitonin 0.09ng/mL (0.00-0.08) Troponin T 0.020ug/L (0.0-0.011) White Blood Count 2.5th/mm3 (3.8-10.1) Red Blood Count 4.06mil/mm3 (4.40-5.80) Hemoglobin 14.0g/dL (13.8-17.2) Hematocrit 40.0% (41.0-50.0) Mean Corpuscular Volume 98.5fL (81-100) Mean Corpuscular Hemoglobin 34.5pg (27.0-35.0) Mean Corpuscular Hemoglobin Concent 35.0% (32.0-37.0) Red Cell Distribution Width 12.8% (12.3-15.4) Platelet Count 72bil/L (150-400) Neutrophils (%) (Auto) 31.2% (40-74) Lymphocytes (%) (Auto) 33.2% (14-46) Monocytes (%) (Auto) 32.4% (4-12) Eosinophils (%) (Auto) 2.8% (0-5) Basophils (%) (Auto) 0% (0-3) Sodium Level 137mEq/L (134-144) Potassium Level 4.1mEq/L (3.5-5.2) Chloride Level 98mEq/L (97-108) Carbon Dioxide Level 24mmol/L (18-29) Blood Urea Nitrogen 26mg/dL (8-27) Creatinine 1.15mg/dL (0.76-1.27) Estimat Glomerular Filtration Rate 64mL/min (>59) Glucose Level 130mg/dL (60-99) Calcium Level 9.9mg/dL (8.5-10.1) Discharge Medications Discharge Medications Allopurinol (Allopurinol) 100 Mg Tablet 100 MG PO DAILY (Reported) Aspirin Chew (Aspirin Chew) 81 Mg Chew 81 MG PO DAILY Prescribed by: LINDA LUU MD Atorvastatin Calcium (Atorvastatin Calcium) 10 Mg Tablet 10 MG PO HS Prescribed by: LINDA LUU MD Carvedilol (Carvedilol) 12.5 Mg Tablet 12.5 MG PO BID (Reported) Furosemide (Furosemide) 20 Mg Tab 20 MG PO DAILY (Reported) Losartan Potassium (Losartan Potassium) 50 Mg Tablet 50 MG PO DAILY (Reported) Tamsulosin (Flomax) 0.4 Mg Capsule 0.4 MG PO HS Prescribed by: LINDA LUU MD As needed Acetaminophen (Acetaminophen) 325 Mg Capsule 650 MG PO Q4H PRN PRN For Pain ( Reported) Menthol (Absorbine Pain Relieving) 56.7 Gm Gel..gram. 1 APPLIC EXT TID PRN PRN For Pain (Reported) Nitroglycerin SL (Nitrostat) 0.4 Mg Tab.subl 0.4 MG SL Q5MIN PRN PRN For Chest Pain Prescribed by: LINDA LUU MD Followup Plan Follow-up plan Return to [facility] with continued walker and electric wheelchair use Discharge Diet: Heart Healthy Discharge Activity: No restrictions (optimize fall precautions as patient is a fall risk, patient utilizing electric wheelchair now) Patient Instructions Mr. Turner, you were treated for increased fluid in your Lungs, this was treated with IV Lasix. Your heart had a little strain during this episode but it does not look like he had any evidence of an acute heart attack. Please keep a regular primary care follow-up within 2 weeks. I have not changed your home medications Follow-up Provider: Jess Darling PA-C Follow-up with PCP in: 2 weeks Provider: Reji Salazar MD Follow-up in: 2 weeks Time spent 40 minutes spent with evaluation and management including coordination of care. Greater than 50% of time spent [id number] copies to: Reji Salazar MD; Jess Darling PA-C, David DO Dec 17, 2016 10:28
== END 2016-12-17 13:44 | disposition home or self-care (01) | DRG 293 ==
LOC: SED 11:53 → EDBD 11:53 → OSC 14:44 → OBSVTOIN 14:44
PROVIDERS: ADMIT Internal Medicine; ATTEND Internal Medicine
DX: I50.23 Acute on chronic systolic (congestive) heart failure (principal); I25.10 Atherosclerotic heart disease of native coronary artery without angina pectoris; K21.9 Gastro-esophageal reflux disease without esophagitis; I10 Essential (primary) hypertension; Z87.891 Personal history of nicotine dependence

== ENCOUNTER 2017-03-19 02:39 | Inpatient (IN) | payer MEDICARE ==
[~2017-03-19] VITALS: Ht 172.7 cm; Wt 70.5 kg
[2017-03-19] VITALS (11 sets, daily range): BP systolic 142–179; BP diastolic 63–98; PULSE 50–70; RESP 12–20; O2SAT 92–97
[~2017-03-19 02:39] MED LIST changes: +FUR20 PO; -FURO-129 PO; -HYDR-4003 PO; -LOSA50TA3 PO; +LOSA50TA37 PO; +MENT56.7 EXT; -PRE20 PO; +ZYL100 PO
--- NOTE | 2017-03-19 02:46 | ED.REPORT ---
HPI-General Illness Date of Service Mar 19, 2017 ED Provider: Jorge Munoz MD An 89 year old male with a history of CHF, CAD, GERD, hypertension, SD, pacemaker and diverticulosis is brought to the ED via EMS due to chest pain. The pt resides at [facility] and reported acute chest pain with shortness of breath tonight. He was given nitro and Phenergan en route, which helped to relieve his symptoms. History is limited by pt condition. Nursing Notes Stated Complaint: CHEST PAIN, DIARRHEA AND VOMITING Nursing Notes Reviewed: Yes Allergies: Coded Allergies: naproxen (Verified Allergy, Severe, Upper Lip Swelling, 12/15/16) Aminoglycosides (Verified Allergy, Mild, 05/11/16) bacitracin (Verified Allergy, Mild, 12/15/16) neomycin (Verified Allergy, Mild, 12/15/16) polymyxin B (Verified Allergy, Mild, 12/15/16) Scheduled Allopurinol (Allopurinol) 100 Mg Tablet 100 MG PO DAILY Aspirin Chew (Aspirin Chew) 81 Mg Chew 81 MG PO DAILY Atorvastatin Calcium (Atorvastatin Calcium) 10 Mg Tablet 10 MG PO HS Carvedilol (Carvedilol) 12.5 Mg Tablet 12.5 MG PO BID Furosemide (Furosemide) 20 Mg Tab 20 MG PO DAILY Losartan Potassium (Losartan Potassium) 50 Mg Tablet 50 MG PO DAILY Tamsulosin (Flomax) 0.4 Mg Capsule 0.4 MG PO HS Scheduled PRN Acetaminophen (Acetaminophen) 325 Mg Capsule 650 MG PO Q4H PRN PRN For Pain Menthol (Absorbine Pain Relieving) 56.7 Gm Gel..gram. 1 APPLIC EXT TID PRN PRN For Pain Nitroglycerin SL (Nitrostat) 0.4 Mg Tab.subl 0.4 MG SL Q5MIN PRN PRN For Chest Pain General Time Seen by : 02:45 Chief Complaint Chest pain Hx Obtained From: EMS Arrived By: Ambulance Sudden in Onset?: Yes Onset Occurred: 1 - 4 hours ago Recent Healthcare: Recent doctor visit, Recent hospitalization Similar Sx Previous: Yes Past Medical History Past Medical History Notes: PCP Dr. 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 current plus VR model RR7655-90W, serial #[id number], Durata lead, model 7120Q/58CM, serial #[id number]) Hip replacement Colonoscopy Cardiac stenting Pacemaker Family History non-contributory Smoking History Former Smoker Social History Alcohol Use: Denies alcohol use Drug Use: Denies drug use Other Social History: Lives in group home, Local resident Ambulatory Status Independent Review of Systems Unable to Obtain ROS Patient condition Physical Exam Vital Signs Vital Signs Date Time Temp Pulse Resp B/P Pulse Ox O2 Delivery O2 Flow Rate FiO2 03/19/17 04:44 57 12 146/65 95 Room Air 03/19/17 02:48 36.5 59 16 179/98 92 Room Air Initial VS: Reviewed General/Constitutional: Awake, Alert Head / Eyes: Atraumatic, Normocephalic, PERRL, EOMI ENT: Atraumatic, Airway patent, Mucous membranes moist Neck: Atraumatic, Supple, Full range of motion JVD Respiratory / Chest: Atraumatic, Breath sounds = bilat, No respiratory distress crackles Cardiovascular: Heart rate NL, Regular rhythm, Heart sounds NL 1+ edema peripherally Abdomen: Atraumatic, Soft, Non-tender Back: Atraumatic, Full range of motion Upper Extremities Upper Extremity / MS: Atraumatic, Full range of motion Lower Extremity / Pelvis / MS: Atraumatic, Full range of motion Skin: Atraumatic, Color NL, No rash, Warm, Dry Neurologic: No motor deficits, No sensory deficits sedated Interpretation & Diagnostics Lab Results Interpretation Result Diagram: 03/19/17 0245 03/19/17 0245 Test 03/19/17 02:45 03/19/17 04:45 White Blood Count 3.2th/mm3 (3.8-10.1) Red Blood Count 3.91mil/mm3 (4.40-5.80) Hemoglobin 13.5g/dL (13.8-17.2) Hematocrit 38.9% (41.0-50.0) Mean Corpuscular Volume 99.5fL (81-100) Mean Corpuscular Hemoglobin 34.5pg (27.0-35.0) Mean Corpuscular Hemoglobin Concent 34.7% (32.0-37.0) Red Cell Distribution Width 12.8% (12.3-15.4) Platelet Count 95bil/L (150-400) Neutrophils (%) (Auto) 19.3% (40-74) Lymphocytes (%) (Auto) 53.3% (14-46) Monocytes (%) (Auto) 24.6% (4-12) Eosinophils (%) (Auto) 2.5% (0-5) Basophils (%) (Auto) 0.3% (0-3) Prothrombin Time 11.0sec (8.1-12.5) Prothromb Time International Ratio 1.03ratio Activated Partial Thromboplast Time 25.2sec (22.8-33.0) Sodium Level 140mEq/L (134-144) Potassium Level 3.9mEq/L (3.5-5.2) Chloride Level 103mEq/L (97-108) Carbon Dioxide Level 20mmol/L (18-29) Blood Urea Nitrogen 21mg/dL (8-27) Creatinine 1.22mg/dL (0.76-1.27) Estimat Glomerular Filtration Rate 59mL/min (>59) Glucose Level 136mg/dL (60-99) Calcium Level 9.9mg/dL (8.5-10.1) Magnesium Level 1.9mg/dL (1.6-2.6) Total Bilirubin 0.6mg/dL (0.0-1.2) Aspartate Amino Transf (AST/SGOT) 20U/L (0-50) Alanine Aminotransferase (ALT/SGPT) 14U/L (0-44) Alkaline Phosphatase 84U/L (25-160) Pro-B-Type Natriuretic Peptide 4675pg/mL (0-486) Total Protein 6.9g/dL (6.4-8.4) Albumin 4.3g/dL (3.4-5.0) Troponin T 0.010ug/L (0.0-0.011) ECG Interpretation ECG Interpretation: junctional rhythm with a rate of 58 LBBB Time: 03:01 Interpreted by: ED physician X-Ray Chest Interpretation Chest Xray Interpretation: pacemaker in place CHF Interpretation / Wet Read by: Wet read ED physician Re-Eval/Medical Decision Med Decision/Clinical Course 89-year-old with known CHF and coronary disease, presents with chest discomfort and shortness of breath. He is generally DO NOT RESUSCITATE but wanted this treated tonight as far as his discomfort. He remains DO NOT RESUSCITATE as far as an acute arrest. His initial troponin is 0.011, trivially elevated. His pediatric peptide is elevated nearly 5000. He has apparent CHF on his chest x-ray. He is begun with aspirin, Nitropaste, Lasix, and is admitted now for completion of rule out rule in protocol and diuresis. Source of Hx: Old records Consultation : Referral / Consult Name: Renetta Eisenberg DO Consulted With: Hospitalist Call Returned at: 05:02 Ornamental Metal Erector: Agrees with eval, Agrees with plan, Accepts admit Note: Spoke with Dr. Eisenberg, hospitalist, regarding pt's case. Dr. Eisenberg agrees with the evaluation and agrees to admit the pt. Counseled Regarding: Diagnosis, Lab results, Need for admission Discharge & Departure Primary Impression: Chest pain Chest pain type: unspecified Qualified Code: R07.9 - Chest pain, unspecified Additional Impressions: CHF (congestive heart failure) Congestive heart failure type: unspecified congestive heart failure type Congestive heart failure chronicity: acute on chronic Qualified Code: I50.9 - Heart failure, unspecified LBBB (left bundle branch block) Shortness of breath Ruled Out: Myocardial infarction Disposition: ADMITTED TO HOSPITAL Discharge Condition All VS Reviewed: Yes Condition: Stable Referrals: Jess Darling PA-C (PCP) Scribfelecia Attestation Portions of this note were transcribed by Tesha Cuba. I, Dr. Munoz personally performed the history, physical exam and medical decision-making; I reviewed and confirmed the accuracy of the information in the transcribed note. Signed by: Venancio Dc, 03/19/2017 and 0532. copies to: Jess Darling PA-C, Christopher W MD Mar 19, 2017 02:45 TESHA CUBA Mar 19, 2017 02:56
[2017-03-19 03:00] LABS: BASOPHILS % (AUTO) 0.3 % (0-3); EOSINOPHILS % (AUTO) 2.5 % (0-5); MONOCYTES % (AUTO) 24.6 % (4-12); Mean Corpuscular Hemoglobin 34.5 pg (27.0-35.0); Mean Corpuscular Volume 99.5 fL (81-100); NEUTROPHILS % (AUTO) 19.3 % (40-74); Platelet Count 95 bil/L (150-400)
[2017-03-19 03:20] LABS: INR 1.03 ratio
[2017-03-19 03:24] LABS: TROPONIN T 0.011 ug/L (0.0-0.011)
[2017-03-19 03:36] LABS: Magnesium 1.9 mg/dL (1.6-2.6)
[2017-03-19] MEDS ORDERED: Ondansetron 2 mg/mL 2 mL Inj IVPUSH PRN ×2 (06:15→07:20)
[2017-03-19] MEDS ORDERED: Alum-Mag Hydrox-Simeth 30 mL Suspension PO PRN ×2 (06:15→07:20)
[2017-03-19] MEDS ORDERED: Furosemide 10 mg/mL 10 mL Inj IVPUSH ONE (06:15)
--- NOTE | 2017-03-19 06:50 | NUR ---
Arrival Pt arrived from ER to [facility] # [id number] approx at 0625. Daughter at the bedside filling out admission questioner. Admission screening defer to day team.
[2017-03-19] MEDS ORDERED: Polyethylene Glycol (PEG) 17 Gm Powder PO PRN (07:20)
[2017-03-19] MEDS: Sodium Chloride LOK Flush 10 mL Syringe IVFLUSH SCH ×2 (09:04→16:30)
--- NOTE | 2017-03-19 11:18 | DRSVH ---
PROCEDURE: X-RAY CHEST ONE VIEW, PORTABLE ([id number]) INDICATIONS: Chest pain. TECHNIQUE: One view of the chest was acquired. COMPARISON: [facility], CR, XR CHEST 1VW (PORTABLE), 12/16/2016, 8:07. FINDINGS: Surgical changes and devices: There is a cardiac defibrillator in expected position. Lungs and pleura: Bilateral interstitial infiltrates suggest pulmonary edema secondary to congestive heart failure. No pleural effusions or pneumothorax. Mediastinum: Mediastinal contours appear normal. Heart size is moderately increased. Bones and chest wall: No suspicious bony lesions. Overlying soft tissues appear unremarkable. The calcific tendinitis of the left shoulder. IMPRESSION: Pulmonary edema secondary to congestive heart failure. Dictated by: Jim Lord M.D. on 03/19/2017 at 11:15 Approved by: Jim Lord M.D. on 03/19/2017 at 11:16
[2017-03-19] MEDS ORDERED: Furosemide 10 mg/mL 4 mL Inj IVPUSH ONE (12:30)
[2017-03-19 14:40] LABS: APPEARANCE,URINE CLEAR (CLEAR,HAZY); COLOR,URINE STRAW (YELLOW); OCCULT BLOOD,URINE NEGATIVE (NEGATIVE); PH,URINE 5.5 (5.0-8.0); UROBILINOGEN,URINE NORMAL (NORMAL)
--- NOTE | 2017-03-19 17:00 | PCM.HPMED ---
Subjective Date of Service Mar 19, 2017 Primary Provider: Admitting Physician: Todd Hernandez MD Primary Care Physician: Jess Darling PA-C Attending Physician: Todd Hernandez MD Admit Status: From the Emergency Department, Admit to Green Team Chief Complaint: Chest pain and palpitations/45 minutes Worsening dyspnea/few hours History of Present Illness: 89-year-old gentleman with past medical history of systolic CHF EF 30-35%, coronary artery disease s/p stenting and AICD, CHF, hypertension, and GERD came to the emergency room due to Chest pain and palpitations of 45 minutes and Worsening dyspnea few hours. He states he woke up with left-sided dull aching constant chest pain,9/10, lasted for 45 minutes . He also had diaphoresis with the pain, daughter at the bedside describes his shirt was soaked when he came to emergency room. He also had associated dyspnea with the chest pain. Chest pain resolved with nitro. Dyspnea also improved/resolved after Lasix. Denies lightheadedness. Currently no chest pain. Breathing at baseline. Patient takes Lasix 20 mg by mouth daily and compliant with medications. Denies any excessive salt intake ED course:EKG LBBB unchanged from before, troponin negative 2. Chest x-ray with pulmonary edema. BNP elevated > 4000, Lasix IV given and dyspnea improved. Chest pain resolved with nitroglycerin Review of Systems: Comprehensive review of systems performed, Pertinent positives and negatives included in HPI Allergies Coded Allergies: naproxen (Verified Allergy, Severe, Upper Lip Swelling, 12/15/16) Aminoglycosides (Verified Allergy, Mild, 05/11/16) bacitracin (Verified Allergy, Mild, 12/15/16) neomycin (Verified Allergy, Mild, 12/15/16) polymyxin B (Verified Allergy, Mild, 12/15/16) Home Medications Allopurinol (Allopurinol) 100 Mg Tablet 100 MG PO DAILY Aspirin Chew (Aspirin Chew) 81 Mg Chew 81 MG PO DAILY Atorvastatin Calcium (Atorvastatin Calcium) 10 Mg Tablet 10 MG PO HS Carvedilol (Carvedilol) 12.5 Mg Tablet 12.5 MG PO BID Furosemide (Furosemide) 20 Mg Tab 20 MG PO DAILY Losartan Potassium (Losartan Potassium) 50 Mg Tablet 50 MG PO DAILY Tamsulosin (Flomax) 0.4 Mg Capsule 0.4 MG PO HS Scheduled PRN Acetaminophen (Acetaminophen) 325 Mg Capsule 650 MG PO Q4H PRN PRN For Pain Menthol (Absorbine Pain Relieving) 56.7 Gm Gel..gram. 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 patient is lying comfortably in hospital bed HEENT: Head is normocephalic atraumatic, Pupils equal and reactive, extraocular movements intact, Lungs crackles at the lung bases Heart regular rate and rhythm without murmurs gallops or rubs,AICD in place,JVD Abdomen soft nontender without hepatosplenomegaly Extremities pulses are present dorsalis pedis posterior tibialis and radial. tSkin is warm and dry there are no rashes, Psych alert and oriented to person place and time Neuro cranial nerves II through XII are grossly intact Lymph: There is no lymphadenopathy appreciated in the cervical supra infraclavicular regions : no palafox Lab and Diagnostics Result Diagram: 03/19/17 0245 03/19/17 0245 X-Rays, CTs and MRIs PROCEDURE: X-RAY CHEST ONE VIEW, PORTABLE ([id number]) INDICATIONS: Chest pain. TECHNIQUE: One view of the chest was acquired. COMPARISON: [facility], CR, XR CHEST 1VW (PORTABLE), 12/16/2016, 8: 07. FINDINGS: Surgical changes and devices: There is a cardiac defibrillator in expected position. Lungs and pleura: Bilateral interstitial infiltrates suggest pulmonary edema secondary to congestive heart failure. No pleural effusions or pneumothorax. Mediastinum: Mediastinal contours appear normal. Heart size is moderately increased. Bones and chest wall: No suspicious bony lesions. Overlying soft tissues appear unremarkable. The calcific tendinitis of the left shoulder. IMPRESSION: Pulmonary edema secondary to congestive heart failure. Dictated by: Jim Lord M.D. on 03/19/2017 at 11:15 Cardiac Echo Impressions Echo 12/15/16 Interpretation Summary The left ventricle is mildly dilated. Left ventricular systolic function is moderate to severely reduced. The ejection fraction is estimated to be 30- 35%. Compared to the prior exam, left ventricular function is slightly improved. There is akinesis of the basal 2/3 of the inferior and inferolateral man with severe global hypokinesis of the rest of the ventricle as well as marked dyssynchronous contraction due to RV apical pacing. Compared to the prior exam, the left ventricular wall motion has not changed. The right ventricle is normal in size and function. There is a pacemaker lead in the right ventricle. Right ventricular systolic pressure is estimated to be 34 mmHg plus the clinically estimated CVP which cannot be estimated on this exam. The left atrium is severely dilated. The right atrium is mildly dilated. There is moderate mitral regurgitation. There is mild aortic regurgitation. There is no other significant valvular heart disease. The aortic root is normal size. Assessment & Plan 89-year-old gentleman with past medical history of systolic CHF EF 30-35%, coronary artery disease s/p stenting and AICD, CHF, hypertension, and GERD came to the emergency room due to Chest pain and palpitations of 45 minutes and Worsening dyspnea few hours. # Acute on chronic systolic CHF -echo in November 2016 EF 30-35%,repeat echo -continue carvedilol -switch home po lasix to lasix iv 20 daily,responded well -chest x-ray with pulmonary edema, BNP elevated > 4000 -Dr Salazar is his cooker sulfate ,may consult him if needed # Chest pain and palpitation -EKG and troponin unremarkable. -Consider holding BB and doing stress test once acute CHF resolves. -AICD interrogation requested -Continue aspirin, statin, carvedilol, losartan # CAD s/p stenting and AICD -Continue aspirin, statin,BB,ARB -May consider holding carvedilol tomorrow for stress test the day after #Hypertension -Continue home meds Patient admitted under inpatient status with expected length of stay > 2 midnights for severity of present symptoms, complexities of treatment plan and risk for adverse events DNR/DNI per patient Disposition: Discharge 2-3 days VTE Mechanical Devices: Venous Foot Pump copies to: Reji Salazar MD; Jess Darling PA-C, Melaku MD Mar 19, 2017 17:00
--- NOTE | 2017-03-19 18:10 | NUR ---
PULLED IV pt states that the bandage was loose so he pulled out his IV the rest of the way.
[2017-03-20] VITALS (7 sets, daily range): BP systolic 128–166; BP diastolic 57–85; PULSE 62–75; RESP 16–18; O2SAT 92–96
[2017-03-20] MEDS: Sodium Chloride LOK Flush 10 mL Syringe IVFLUSH SCH ×4 (00:30→23:32)
--- NOTE | 2017-03-20 05:18 | NUR ---
NOC/Mentation Pt has been forgetful and a little confused in the middle of night taking off telemetry box and stickers. Explained to the pt the importance of having to monitor his heart activities. Denies chest pain, sob, n/v, or abd discomfort. VSS and has been afebrile. Hourly rounding in effect.
[2017-03-20] MEDS: Furosemide 10 mg/mL 2 mL Inj IVPUSH SCH (08:21)
--- NOTE | 2017-03-20 12:37 | DRSVH ---
[facility] [address] [place] [address] Echocardiogram Report Name: KALINA LEON Frederick e: 03/20/2017 Height: 68 in Hospital Exam Location: [facility] Weight: 155 lb Gender: Male BSA: 1.8 m2 : 1925 Age: 89 yrs BP: 131/63 mmHg Reason For Study: Chest Pain Performed By: Cordelia Burroughs Referring Physician: AUSTIN AGUILAR Interpretation Summary The left ventricle is mildly dilated. The ejection fraction is estimated to be 25-30%. There is moderate to severe global hypokinesis of the left ventricle. There is a significant dyssynchronous contraction pattern due to the paced rhythm. Inferoposterior akinesis. There is mild to moderate mitral regurgitation. There is mild aortic regurgitation. There is mild tricuspid regurgitation. Compared to the prior echo report on 12/15/2016, there is no significant change. Procedure: A two-dimensional transthoracic echocardiogram with color flow and Doppler was performed in limited views only. The study quality was technically adequate. Images from the parasternal window were difficult to obtain and are suboptimal in quality. Comparison is made with the echocardiogram of 12/15/2016. The patient has a paced rhythm. Left Ventricle: The left ventricle is mildly dilated. The ejection fraction is estimated to be 25-30%. There is moderate to severe global hypokinesis of the left ventricle. There is a significant dyssynchronous contraction pattern due to the paced rhythm. Inferoposterior akinesis. Diastolic function could not be accurately assessed due to paced rhythm. Right Ventricle: The right ventricle is normal in size and function. There is a pacemaker lead in the right ventricle. Atria: The left atrium is moderately dilated. The right atrium is mildly dilated. Mitral Valve: The mitral valve leaflets appear mildly thickened, but open well. There is mild to moderate mitral regurgitation. Aortic Valve: The aortic valve is grossly normal. There is mild aortic regurgitation. Tricuspid Valve: The tricuspid valve is not well visualized, but is grossly normal. There is mild tricuspid regurgitation. Pulmonic Valve: The pulmonic valve is not well visualized. Great Vessels: The IVC is of normal diameter and collapses greater than 50% with a sniff. This suggests a low right atrial pressure of 3 mm Hg. Pericardium/ Pleura There is no pericardial effusion. There is no pleural effusion. MMode/2D Measurements & Calculations TAPSE: 2.7 cm LA A2 area: 20.8 cm LA A4 area: 22.1 cm LA length (vol): 5.3 cm LA vol: 73.4 ml LA vol index: 40.0 ml/m2 Doppler Measurements & Calculations Ao V2 max TR max jeff Ao V2 mean LV V1 max PG : 135.4 cm/sec : 281.0 cm/sec : 103.5 cm/sec Ao max P.3 mmHg TR max PG Ao V2 VTI: 28.1 cm LV V1 VTI Ao mean P.7 mmHg : 31.6 mmHg : 19.9 cm LVOT Max Jeff : 105.7 cm/sec sev ratio: 0.71 Electronically signed by: Vinicius Gaviria on Reading Physician:03/20/2017 12:36 PM
--- NOTE | 2017-03-20 16:28 | NUR ---
Social Work-attempted initial assessment: SW attempted complete assessment, but RN in the room. SW will plan to follow up tomorrow. MARTY Webb
--- NOTE | 2017-03-20 17:25 | PCM.PNMED ---
Subjective Date of Service Mar 20, 2017 Subjective Denies any new issues/complaints. No chest pain or SOB today Exam Vital Signs Vital Sign - Last Date Time Temp Pulse Resp B/P Pulse Ox O2 Delivery O2 Flow Rate FiO2 03/20/17 13:42 36.5 66 16 137/57 96 Room Air Intake and Output 03/19/17 03/19/17 03/20/17 Cumulative From/Thru 15:00 23:00 07:00 03/19/17 02:48 - 03/20/17 06:27 Intake Total 940 ml 260 ml 1200 ml Output Total 500 ml 500 ml Balance 440 ml 260 ml 700 ml Intake Oral 940 ml 260 ml 1200 ml Output Urine Total 500 ml 500 ml # Voids 3 3 # Bowel Movements 0 0 General: Alert, Cooperative, No Acute Distress Head: Normal Eyes: PERRLA, Scleral Anicteric Nose: Mucous Membr Moist/[place] Mouth: Mucous Membr Moist/[place] Neck: Supple Chest & Lungs: Chest Wall Normal, Clear to auscultation & percussion Cardiovascular: Regular Rate/Rhythm Abdomen: Non-tender, Non-distended, Normoactive bowel tones, Soft Extremities: No cyanosis/clubbing/edma bilat Neurological: Grossly Neurologically Intact, Cranial Nerves 2-12 Intact, Normal Speech IVs and Medications Medications Reviewed: Medications were reviewed in detail Lab and Diagnostics Result Diagram: 03/19/175 03/19/17 0245 X-Rays, CTs and MRIs PROCEDURE: X-RAY CHEST ONE VIEW, PORTABLE ([id number]) INDICATIONS: Chest pain. TECHNIQUE: One view of the chest was acquired. COMPARISON: [facility], CR, XR CHEST 1VW (PORTABLE), 12/16/2016, 8: 07. FINDINGS: Surgical changes and devices: There is a cardiac defibrillator in expected position. Lungs and pleura: Bilateral interstitial infiltrates suggest pulmonary edema secondary to congestive heart failure. No pleural effusions or pneumothorax. Mediastinum: Mediastinal contours appear normal. Heart size is moderately increased. Bones and chest wall: No suspicious bony lesions. Overlying soft tissues appear unremarkable. The calcific tendinitis of the left shoulder. IMPRESSION: Pulmonary edema secondary to congestive heart failure. Dictated by: Jim Lord M.D. on 03/19/2017 at 11:15 Cardiac Echo Impressions Echo 12/15/16 Interpretation Summary The left ventricle is mildly dilated. Left ventricular systolic function is moderate to severely reduced. The ejection fraction is estimated to be 30- 35%. Compared to the prior exam, left ventricular function is slightly improved. There is akinesis of the basal 2/3 of the inferior and inferolateral man with severe global hypokinesis of the rest of the ventricle as well as marked dyssynchronous contraction due to RV apical pacing. Compared to the prior exam, the left ventricular wall motion has not changed. The right ventricle is normal in size and function. There is a pacemaker lead in the right ventricle. Right ventricular systolic pressure is estimated to be 34 mmHg plus the clinically estimated CVP which cannot be estimated on this exam. The left atrium is severely dilated. The right atrium is mildly dilated. There is moderate mitral regurgitation. There is mild aortic regurgitation. There is no other significant valvular heart disease. The aortic root is normal size. Assessment & Plan 89-year-old gentleman with past medical history of systolic CHF EF 30-35%, coronary artery disease s/p stenting and AICD, CHF, hypertension, and GERD came to the emergency room due to Chest pain and palpitations of 45 minutes and Worsening dyspnea few hours. # Acute on chronic systolic CHF. present on admission. -Echo in November 2016 EF 30-35%,repeat echo -Continue carvedilol -Resume home dose PO Lasix in am as clinically he now appears fairly euvolemic. -Dr Salazar is his wide piece goods inspector, may consult him if needed # Chest pain and palpitation -EKG and troponin unremarkable. -Plan for NM stress test in AM -AICD interrogation requested on admission. Followup -Continue aspirin, statin, carvedilol, losartan # CAD s/p stenting and AICD -Continue aspirin, statin,BB,ARB -May consider holding carvedilol tomorrow for stress test the day after #Hypertension -Continue home meds Dispo: 1-2 days pending cardiac workup noted above VTE Mechanical Devices: Venous Foot Pump Cristofer Hope Mar 20, 2017 17:25
--- NOTE | 2017-03-21 04:41 | NUR ---
Mentation Pt with periods of confusion and would get out of bed several times without assistance; Rogers alarm on for safety. Pt steady on feet wearing non slip socks. Denies chest pain/pressure, shortness of breath and n/v/d. Pt did sleep the majority of the shift without issues noted. VSS. Care continues.
[2017-03-21 06:32] LABS: BASOPHILS % (AUTO) 0.4 % (0-3); EOSINOPHILS % (AUTO) 3.4 % (0-5); MONOCYTES % (AUTO) 29.5 % (4-12); Mean Corpuscular Hemoglobin 34.2 pg (27.0-35.0); Mean Corpuscular Volume 98.9 fL (81-100); NEUTROPHILS % (AUTO) 30.8 % (40-74); Platelet Count 82 bil/L (150-400)
[2017-03-21 06:50] VITALS: BP 156/74; PULSE 63; RESP 18; O2SAT 96
[2017-03-21 06:50] LABS: TROPONIN T 0.014 ug/L (0.0-0.011)
[2017-03-21 07:01] LABS: Magnesium 1.8 mg/dL (1.6-2.6)
[2017-03-21] MEDS: Sodium Chloride LOK Flush 10 mL Syringe IVFLUSH SCH ×2 (08:54→16:30)
--- NOTE | 2017-03-21 09:45 | NUR ---
Pt off floor for stress test. Tele removed.
[2017-03-21 10:59] VITALS: PULSE 66
--- NOTE | 2017-03-21 12:13 | NUR ---
Faxed clinicals to [facility] per [facility]
[2017-03-21] MEDS: Furosemide 10 mg/mL 2 mL Inj IVPUSH SCH (12:17)
--- NOTE | 2017-03-21 13:00 | DRSVH ---
PROCEDURE: 1 DAY PHARMACOLOGICAL STRESS TEST Rest and pharmacological stress myocardial perfusion SPECT with gated imaging and ejection fraction RADIOPHARMACEUTICAL: 8.6 mCi Tc-99m tetrafosmin IV at rest and 27.1 mCi Tc-99m tetrafosmin IV at pea k effect of pharmacological stress. A [id number] was performed. INDICATIONS: CHEST PAIN. TECHNIQUE: Radiopharmaceutical was injected at peak stress test, and also at rest. SPECT images wer e obtained. SPECT myocardial perfusion images were displayed in short axis, horizontal long axis, an d vertical long axis views. Gated images were reviewed using [place] [employer] software. COMPARISON: None. CARDIAC STRESS: A pharmacologic stress test was performed under the supervision of an attending staff, using an infus ion of lexiscan 0.4mg IV X1. Hemodynamic data: There is normal blood pressure and heart rate response to pharmacologic stress. Symptoms: The patient denied anginal chest pain. Aminophylline: none EKG: Ventricular paced rhythm at rest. No diagnostic changes of ischemia; no ectopy. FINDINGS: Raw data: There is good myocardial uptake of radiotracer. No significant motion artifacts. Left ventricle function: No transient ischemic dilation. Left ventricle resting end diastolic volum e is 270 mL. Left ventricle stress ejection fraction is 25%; normal range is above 45%. Global hypo kinesis present with dyskinesis of the septum consistent with paced rhythm. Myocardial perfusion: There is a moderately severe lateral wall defect at rest that extends mildly t o the anterolateral wall during stress suggesting predominantly prior infarct with mild ischemia in t he anterolateral wall. Summed stress score is 11 and summed difference score (SDS) is 5, but I think SDS value is an overestimation. IMPRESSION: Abnormal nuclear stress consistent with prior infarction and dfnc-oixc-zaxuvmf ischemia. 1) Abnormal perfusion images consistent with prior infarction and mild ischemia in the anterolateral wall. There is a moderately severe lateral wall defect at rest that extends mildly to the anterolate ral wall during stress suggesting predominantly prior infarct with mild ischemia in the anterolateral wall. Summed stress score is 11 and summed difference score (SDS) is 5, but I think SDS value is an overestimation. 2) Dilated left ventricle at 270mL and severely reduced systolic function (post stress EF 25%). 3) Severe global hypokinesis with dyskinesis of the septum, likely due to the ventricular paced rhyth m. 4) Non-diagnostic ECG due to paced rhythm. 5) No angina or angina equivalent symptoms with exercise. 6) No prior nuclear stress test available for comparison. Dictated by: Iva Garcia M.D. on 03/21/2017 at 12:49 Approved by: Iva Garcia M.D. on 03/21/2017 at 12:58
[2017-03-21 13:30] VITALS: BP 129/67; PULSE 69; RESP 18; O2SAT 94
--- NOTE | 2017-03-21 13:57 | NUR ---
Social Work-initial assessment/readiness for discharge: Data:See initial assessment. Pt is a 89 y/o male who was admitted on03/19/17 for chest pain per H&P. Pt's insurance is [facility] [employer] and PCP is Jess Darling PA-C. EMR Reviewed. Pt's readmission score is 4-high risk. SW met with pt to discuss discharge planning, SW role explained. Pt resides at [facility] where he remains independent with ADLs. Pt uses a fww at baseline and does not drive. Pt has no HH or SNF history. Pt has no residential care or VA benefits.SW discussed DPOA/ advanced directive, pt confirms he has completed this. SW attempted to reach daughter, no answer. DENILSON called Jaz at [facility] who confirms she will be over tomorrow morning to complete assessment of pt. Jaz would like updated clinicals faxed to [phone]. DENILSON asked UR specialist to fax clinicals. SW provided phone number and plan on white board in room. SW will continue to follow. Assessment:Pt who resides in [facility]. Plan:Pt to discharge back to [facility] when medically stable. Jaz from [facility] to come tomorrow to complete bedside assessment. DENILSON will continue to follow. MARTY Webb Addendum: 03/21/17 at 1402 by CARYN STYLES SS Amended: Links added.
--- NOTE | 2017-03-21 14:41 | PCM.DIMED ---
Discharge Instructions Date of Service Mar 21, 2017 Dates of Hospitalization Mar 19, 2017 at 05:42 Discharge Diagnosis Discharge Diagnosis # Acute on chronic systolic congestive heart failure. present on admission. Improved # Chest pain and palpitation - Acute myocardial infarction ruled out # History of coronary artery disease and post stent and AICD placement in the past #Hypertension Medication Instructions Additional med instructions Resume home medications as before Diet Discharge Diet: Low fat, Low Sodium, Heart Healthy Activity Discharge Activity: No restrictions Call your provider Call your provider for: Fever or Chills, Shortness of breath, Chest pain Patient Instructions Patient Instructions Seek immediate medical attention if any new or worsening signs or symptoms occur. Follow-up plan 1. Followup with primary care provider within 7-10 days 2. Followup with cardiology (Dr. Salazar) on Monday03/29/17 at 1:[address] [address] Follow-up Provider: Reji Salazar MD Follow-up with PCP in: Other (Monday03/29/17 at 1:15 PM) Provider: Jess Darling PA-C, Masoud Mar 21, 2017 14:41
--- NOTE | 2017-03-21 15:47 | NUR ---
Social Work-discharge: Data:EMR Reviewed. Pt is on day 2 of hospitalization for chest pain per H&P. Pt is medically stable for discharge. DENILSON spoke with Jaz at [facility] who has reviewed the discharge information that DENILSON has faxed over and they are agreeable for pt to return today. SW confirmed plan with pt and he states his daughter is coming to pick him up. All updated and agreeable to plan. Assessment:Pt who resides in [facility]. Plan:Pt to discharge back to [facility] today via POV.Jaz ok with pt returning today. All updated and agreeable to plan. MARTY Wbeb
--- NOTE | 2017-03-21 18:05 | NUR ---
Discharge Pt very anxious about leaving, pulled off tele prior to arrival of ride - did not respond to redirection. IV DCd intact, Tele removed, and all belongings with pt. Pt walking in hallway, would not return to room as directed. Allowed pt to stay at front of unit under supervision. Reviewed discharge paperwork and care notes with daughter/POA - disclaimer signed by daughter. Pt leaving with daughter, escorted out of hospital in WC.
--- NOTE | 2017-03-21 19:00 | PCM.DC.MED ---
Discharge Summary Date of Service Mar 21, 2017 Dates of Hospitalization Date of Hospital Admission Mar 19, 2017 at 05:42 Date of Discharge: Mar 21, 2017 Providers: Admitting Physician: Cristofer Hope Primary Care Physician: Jess Darling PA-C Attending Physician: Cristofer Hope Diagnosis at Time of Discharge Diagnosis at Time of Discharge # Acute on chronic systolic congestive heart failure. present on admission. Improved # Chest pain and palpitation - Acute myocardial infarction ruled out # History of coronary artery disease and post stent and AICD placement in the past #Hypertension Procedures XRay, CTs & MRIs PROCEDURE: X-RAY CHEST ONE VIEW, PORTABLE ([id number]) INDICATIONS: Chest pain. TECHNIQUE: One view of the chest was acquired. COMPARISON: [facility], , XR CHEST 1VW (PORTABLE), 12/16/2016, 8: 07. FINDINGS: Surgical changes and devices: There is a cardiac defibrillator in expected position. Lungs and pleura: Bilateral interstitial infiltrates suggest pulmonary edema secondary to congestive heart failure. No pleural effusions or pneumothorax. Mediastinum: Mediastinal contours appear normal. Heart size is moderately increased. Bones and chest wall: No suspicious bony lesions. Overlying soft tissues appear unremarkable. The calcific tendinitis of the left shoulder. IMPRESSION: Pulmonary edema secondary to congestive heart failure. Dictated by: Jim Lord M.D. on 03/19/2017 at 11:15 Cardiac Echo Impression Date of Service: 03/20/17 0719 Echocardiogram Report Interpretation Summary The left ventricle is mildly dilated. The ejection fraction is estimated to be 25-30%. There is moderate to severe global hypokinesis of the left ventricle. There is a significant dyssynchronous contraction pattern due to the paced rhythm. Inferoposterior akinesis. There is mild to moderate mitral regurgitation. There is mild aortic regurgitation. There is mild tricuspid regurgitation. Compared to the prior echo report on 12/15/2016, there is no significant change. Electronically signed by: Vinicius Gaviria on Reading Physician:03/20/2017 12:36 PM Other Diagnostics Date of Service: 03/21/17 1232 PROCEDURE: 1 DAY PHARMACOLOGICAL STRESS TEST Rest and pharmacological stress myocardial perfusion SPECT with gated imaging and ejection fraction IMPRESSION: Abnormal nuclear stress consistent with prior infarction and mild- [place]-infarct ischemia. 1) Abnormal perfusion images consistent with prior infarction and mild ischemia in the anterolateral wall. There is a moderately severe lateral wall defect at rest that extends mildly to the anterolateral wall during stress suggesting predominantly prior infarct with mild ischemia in the anterolateral wall. Summed stress score is 11 and summed difference score (SDS) is 5, but I think SDS value is an overestimation. 2) Dilated left ventricle at 270mL and severely reduced systolic function (post stress EF 25%). 3) Severe global hypokinesis with dyskinesis of the septum, likely due to the ventricular paced rhythm. 4) Non-diagnostic ECG due to paced rhythm. 5) No angina or angina equivalent symptoms with exercise. 6) No prior nuclear stress test available for comparison. Dictated by: Iva Garcia M.D. on 03/21/2017 at 12:49 Approved by: Iva Garcia M.D. on 03/21/2017 at 12:58 Brief History As noted in H&P by Dr. Hernandez: 89-year-old gentleman with past medical history of systolic CHF EF 30-35%, coronary artery disease s/p stenting and AICD, CHF, hypertension, and GERD came to the emergency room due to Chest pain and palpitations of 45 minutes and Worsening dyspnea few hours. He states he woke up with left-sided dull aching constant chest pain,9/10, lasted for 45 minutes . He also had diaphoresis with the pain, daughter at the bedside describes his shirt was soaked when he came to emergency room. He also had associated dyspnea with the chest pain. Chest pain resolved with nitro. Dyspnea also improved/resolved after Lasix. Denies lightheadedness. Currently no chest pain. Breathing at baseline. Patient takes Lasix 20 mg by mouth daily and compliant with medications. Denies any excessive salt intake ED course:EKG LBBB unchanged from before, troponin negative 2. Chest x-ray with pulmonary edema. BNP elevated > 4000, Lasix IV given and dyspnea improved. Chest pain resolved with nitroglycerin Hospital Course # Acute on chronic systolic CHF. present on admission. Clinically resolved. -Echo without acute change (as noted above) -Continued carvedilol -Resumed home dose PO Lasix as clinically he now appears fairly euvolemic. -Dr Salazar is his ticket printer and tagger and patient setup for further followup as outpatient # Chest pain and palpitation -EKG and troponin unremarkable. -Stress test without acute reversible finding (as noted above) -Patient wishes to follow further as outpatient with his ticket printer and tagger -Continue aspirin, statin, carvedilol, losartan # CAD s/p stenting and AICD -Continue aspirin, statin,BB,ARB #Hypertension. Stable -Continue home meds Exam Vital Signs (Last) Date Time Temp Pulse Resp B/P Pulse Ox O2 Delivery O2 Flow Rate FiO2 03/21/17 13:30 36.7 69 18 129/67 94 Room Air Exam General: Alert, Cooperative, No Acute Distress Head: Normal Eyes: PERRLA, Scleral Anicteric Nose: Mucous Membr Moist/[place] Mouth: Mucous Membr Moist/[place] Neck: Supple Chest & Lungs: Chest Wall Normal, Clear to auscultation bilat Cardiovascular: Regular Rate/Rhythm Abdomen: Non-tender, Non-distended, Normoactive bowel tones, Soft Extremities: No cyanosis/clubbing/edema bilat Neurological: Grossly Neurologically Intact, Cranial Nerves 2-12 Intact, Normal Speech Test 03/19/17 02:45 03/19/17 14:26 03/21/17 05:50 Prothrombin Time 11.0sec (8.1-12.5) Prothromb Time International Ratio 1.03ratio Activated Partial Thromboplast Time 25.2sec (22.8-33.0) Total Bilirubin 0.6mg/dL (0.0-1.2) Aspartate Amino Transf (AST/SGOT) 20U/L (0-50) Alanine Aminotransferase (ALT/SGPT) 14U/L (0-44) Alkaline Phosphatase 84U/L (25-160) Total Protein 6.9g/dL (6.4-8.4) Albumin 4.3g/dL (3.4-5.0) Urine Color Straw (YELLOW) Urine Appearance Clear (CLEAR,HAZY) Urine pH 5.5 (5.0-8.0) Urine Specific [place] 1.005 (1.003-1.035) Urine Protein Negativemg/dL (NEG,TRACE) Urine Glucose (UA) Negativemg/dL (NEGATIVE) Urine Ketones Negativemg/dL (NEGATIVE) Urine Occult Blood Negative (NEGATIVE) Urine Nitrite Negative (NEGATIVE) Urine Bilirubin Negative (NEGATIVE) Urine Urobilinogen Normalmg/dL (NORMAL) Urine Leukocyte Esterase Trace (NEGATIVE) Urine RBC 0-2/hpf (0-2) Urine WBC 0-5/hpf (0-5) Urine Epithelial Cells Occasional/hpf (NONE-MOD) Urine Crystals None seen (NONE SEEN) Urine Bacteria Few/hpf (NONE-FEW) Urine Hyaline Casts None/lpf (NONE) Urine Granular Casts None seen (NONE SEEN) Urine Waxy Casts None seen (NONE SEEN) Urine Red Blood Cell Casts None seen (NONE SEEN) Urine White Blood Cell Casts None seen (NONE SEEN) Urine Mucus None seen (None Seen) Urine Trichomonas None seen (NONE SEEN) Urine Yeast None (NONE SEEN) Urinalysis Comment None Urine Culture Reflexed Indicated White Blood Count 2.3th/mm3 (3.8-10.1) Red Blood Count 3.63mil/mm3 (4.40-5.80) Hemoglobin 12.4g/dL (13.8-17.2) Hematocrit 35.9% (41.0-50.0) Mean Corpuscular Volume 98.9fL (81-100) Mean Corpuscular Hemoglobin 34.2pg (27.0-35.0) Mean Corpuscular Hemoglobin Concent 34.5% (32.0-37.0) Red Cell Distribution Width 12.8% (12.3-15.4) Platelet Count 82bil/L (150-400) Neutrophils (%) (Auto) 30.8% (40-74) Lymphocytes (%) (Auto) 35.5% (14-46) Monocytes (%) (Auto) 29.5% (4-12) Eosinophils (%) (Auto) 3.4% (0-5) Basophils (%) (Auto) 0.4% (0-3) Sodium Level 140mEq/L (134-144) Potassium Level 4.0mEq/L (3.5-5.2) Chloride Level 102mEq/L (97-108) Carbon Dioxide Level 25mmol/L (18-29) Blood Urea Nitrogen 28mg/dL (8-27) Creatinine 1.26mg/dL (0.76-1.27) Estimat Glomerular Filtration Rate 57mL/min (>59) Glucose Level 104mg/dL (60-99) Calcium Level 9.8mg/dL (8.5-10.1) Magnesium Level 1.8mg/dL (1.6-2.6) Troponin T 0.014ug/L (0.0-0.011) Pro-B-Type Natriuretic Peptide 3601pg/mL (0-486) Discharge Medications Discharge Medications Allopurinol (Allopurinol) 100 Mg Tablet 100 MG PO DAILY (Reported) Aspirin Chew (Aspirin Chew) 81 Mg Chew 81 MG PO DAILY Prescribed by: LINDA LUU MD Atorvastatin Calcium (Atorvastatin Calcium) 10 Mg Tablet 10 MG PO HS Prescribed by: LINDA LUU MD Carvedilol (Carvedilol) 12.5 Mg Tablet 12.5 MG PO BID (Reported) Furosemide (Furosemide) 20 Mg Tab 20 MG PO DAILY (Reported) Losartan Potassium (Losartan Potassium) 50 Mg Tablet 50 MG PO DAILY (Reported) Tamsulosin (Flomax) 0.4 Mg Capsule 0.4 MG PO HS Prescribed by: LINDA LUU MD As needed Acetaminophen (Acetaminophen) 325 Mg Capsule 650 MG PO Q4H PRN PRN For Pain ( Reported) Menthol (Absorbine Pain Relieving) 56.7 Gm Gel..gram. 1 APPLIC EXT TID PRN PRN For Pain (Reported) Nitroglycerin SL (Nitrostat) 0.4 Mg Tab.subl 0.4 MG SL Q5MIN PRN PRN For Chest Pain Prescribed by: LINDA LUU MD Additional med instructions Resume home medications as before Followup Plan Follow-up plan 1. Followup with primary care provider within 7-10 days 2. Followup with cardiology (Dr. Salazar) on Monday03/29/17 at 1:[address] [id number] Discharge Diet: Low fat, Low Sodium, Heart Healthy Discharge Activity: No restrictions Patient Instructions Seek immediate medical attention if any new or worsening signs or symptoms occur. Follow-up Provider: Reji Salazar MD Follow-up with PCP in: Other Provider: Jess Darling PA-C, Masoud Mar 21, 2017 19:00
== END 2017-03-21 18:06 | disposition home or self-care (01) | DRG 293 ==
LOC: EDUNIT# 02:39 → SED 02:39 → EDBD 02:39 → MPC 05:42 → OBSVTOIN 05:42
PROVIDERS: ADMIT Internal Medicine; ATTEND Internal Medicine
DX: I50.23 Acute on chronic systolic (congestive) heart failure (principal); I25.10 Atherosclerotic heart disease of native coronary artery without angina pectoris; K21.9 Gastro-esophageal reflux disease without esophagitis; I34.0 Nonrheumatic mitral (valve) insufficiency; Z66 Do not resuscitate; M10.9 Gout, unspecified; I10 Essential (primary) hypertension; I25.2 Old myocardial infarction; Z79.82 Long term (current) use of aspirin; Z95.810 Presence of automatic (implantable) cardiac defibrillator; Z95.5 Presence of coronary angioplasty implant and graft